=== PATIENT | female | born 1995 | race Caucasian/White ===

== ENCOUNTER 2017-10-12 12:19 | Emergency (ER) | payer BC ==
--- NOTE | 2017-10-12 12:35 | EDM.PDOC ---
ED HPI GENERAL MEDICAL PROBLEM - General Chief Complaint: Abdominal Pain Stated Complaint: R SIDE ABDOMINAL PAIN Time Seen by Provider: 10/12/17 12:34 Source of Information: Reports: Patient - History of Present Illness INITIAL COMMENTS - FREE TEXT/NARRATIVE: Patient is here today accompanied by her fipeggy for evaluation of right-sided abdominal pain. Patient states that the pain started approximately 3 weeks ago is more of a pressure. She states it's more of a pressure and then tends to spasm and be sharp after eating. It is to the upper and lower right side. She is taking no medication for this. She states that food worsens her symptoms. She denies any diarrhea or constipation. Her last bowel movement was about 2 days ago and this is normal for her. Patient reports an overall poor diet of processed foods and eating out. She denies any current or past drug use. Caffeine daily. Alcohol 1-2 times per month. LMP 09/14/2017. She is on no daily medications, has a past history of anxiety and a diagnosis of bipolar disorder. Last meal was upper last night she has had some water today. Right Upper Abdomen Pain Score (Numeric/FACES): 7 - Related Data Allergies Allergy/AdvReac Type Severity Reaction Status Date / Time No Known Allergies Allergy Verified 10/12/17 12:28 Home Meds: Home Meds . [No Known Home Meds] 10/12/17 [History] Sertraline [Zoloft] 50 mg PO DAILY 30 Days #30 tab 10/12/17 [Rx] Past Medical History - Past Health History Medical/Surgical History: Denies Medical/Surgical History Psychiatric History: Reports: Anxiety, Depression Social & Family History - Family History Family Medical History: Noncontributory - Tobacco Use Smoking Status *Q: Never Smoker - Recreational Drug Use Recreational Drug Use: No ED ROS GENERAL - Review of Systems Review Of Systems: See Below Constitutional: Reports: Fever, Chills, Malaise, Weakness, Fatigue, Decreased Appetite. Denies: Diaphoresis HEENT: Reports: No Symptoms Respiratory: Reports: No Symptoms Cardiovascular: Reports: No Symptoms GI/Abdominal: Reports: Abdominal Pain, Decreased Appetite, Nausea. Denies: Anorexia, Black Stool, Bloody Stool, Constipation, Diarrhea, Vomiting : Denies: Discharge, Dysuria, Frequency Musculoskeletal: Reports: No Symptoms Skin: Reports: No Symptoms Neurological: Reports: No Symptoms Psychiatric: Reports: No Symptoms ED EXAM, GI/ABD - Physical Exam Exam: See Below Exam Limited By: No Limitations General Appearance: Alert, WD/WN, No Apparent Distress Ears: Normal External Exam, Normal Canal, Normal TMs Nose: Normal Inspection, Normal Mucosa Throat/Mouth: Normal Inspection, Normal Oropharynx Head: Atraumatic, Normocephalic Neck: Normal Inspection, Supple, Non-Tender. No: Lymphadenopathy (L), Lymphadenopathy (R) Respiratory/Chest: No Respiratory Distress, Lungs Clear, Normal Breath Sounds Cardiovascular: Normal Peripheral Pulses, Regular Rate, Rhythm, No Murmur GI/Abdominal Exam: Normal Bowel Sounds, Soft, Tender (RUQ/RLQ positive Fraga sign, negative Ros[place]) Neurological: Alert, Oriented, Normal Cognition, No Motor/Sensory Deficits Psychiatric: Normal Affect, Normal Mood Skin Exam: Warm, Dry, Intact EKG INTERPRETATION EKG Date: 10/12/17 Time: 14:10 Rhythm: NSR Rate (Beats/Min): 53 Course - Vital Signs Last Recorded V/S: Last Vital Signs Temp 99.1 F 10/12/17 13:50 Pulse 72 10/12/17 12:23 Resp 12 10/12/17 13:50 BP 129/88 10/12/17 13:50 Pulse Ox 100 10/12/17 13:50 - Orders/Labs/Meds Orders: Active Orders 24 hr Category Date Time Status EKG 12 Lead [EKG Documentation Completion] [RC] STAT Care 10/12/17 13:53 Active Labs: Laboratory Tests 10/12/17 10/12/17 10/12/17 Range/Units 13:00 13:00 13:00 WBC 5.40 (3.98-10.04) K/mm3 RBC 4.11 (3.98-5.22) M/mm3 Hgb 12.5 (11.2-15.7) gm/L Hct 37.0 (34.1-44.9) % MCV 90.0 (79.4-94.8) fl MCH 30.4 (25.6-32.2) pg MCHC 33.8 (32.2-35.5) g/dl RDW Std Deviation 39.9 (36.4-46.3) fL Plt Count 229 (182-369) K/mm3 MPV 10.0 (9.4-12.3) fl Neutrophils % (Manual) 62 H (40-60) % Band Neutrophils % 0 (0-10) % Lymphocytes % (Manual) 28 (20-40) % Atypical Lymphs % 0 % Monocytes % (Manual) 9 (2-10) % Eosinophils % (Manual) 1 (0.7-5.8) % Basophils % (Manual) 0 L (0.1-1.2) Platelet Estimate Adequate Plt Morphology Comment Normal RBC Morph Comment Normal Sodium 141 (136-145) mEq/L Potassium 3.9 (3.5-5.1) mEq/L Chloride 106 (98-107) mEq/L Carbon Dioxide 24 (21-32) mEq/L Anion Gap 14.9 (5-15) BUN 8 (7-18) mg/dL Creatinine 0.7 (0.55-1.02) mg/dL Est Cr Clr Drug Dosing 122.89 mL/min Estimated GFR (MDRD) > 60 (>60) mL/min BUN/Creatinine Ratio 11.4 L (14-18) Glucose 93 (74-106) mg/dL Calcium 8.5 (8.5-10.1) mg/dL Total Bilirubin 0.3 (0.2-1.0) mg/dL AST 9 L (15-37) U/L ALT 13 L (14-59) U/L Alkaline Phosphatase 48 (46-116) U/L Troponin I < 0.017 (0.00-0.056) ng/mL C-Reactive Protein < 0.2 (<1.0) mg/dL Total Protein 6.6 (6.4-8.2) g/dl Albumin 3.4 (3.4-5.0) g/dl Globulin 3.2 gm/dL Albumin/Globulin Ratio 1.1 (1-2) Lipase 152 (73-393) U/L Meds: Medications Discontinued Medications Generic Name Dose Route Start Last Admin Trade Name Freq PRN Reason Stop Dose Admin Al Hydroxide/Mg Hydroxide 30 0 ml 10/12/17 12:45 10/12/17 13:07 ml/ Lidocaine HCl 15 ml PO 10/12/17 12:46 45 ml ONETIME ONE Administration Famotidine 20 mg 10/12/17 13:44 10/12/17 13:49 Pepcid PO 10/12/17 13:45 20 mg ONETIME ONE Administration Sodium Chloride 1,000 mls @ 999 mls/hr 10/12/17 12:46 10/12/17 13:07 Normal Saline IV 10/12/17 13:46 999 mls/hr ONETIME ONE Administration Lorazepam 1 mg 10/12/17 13:53 10/12/17 14:16 Ativan PO 10/12/17 13:54 1 mg ONETIME ONE Administration - Re-Assessments/Exams Free Text/Narrative Re-Assessment/Exam: Right-sided upper and lower abdominal pain with positive Fraga sign. Will start normal saline and get basic lab work and UA/Hcg. Will also have patient try GI cocktail to see if this helps with her pain 10/12/17 13:01 WBC was 5,400 with 62% neutrophils and no bands. CMP was normal including normal LFTs and normal lipase at 152. CRP 0.2. Troponin was negative. I suspect the patient's chest pain is related both to reflux and now anxiety since she has been here. She has been off her sertraline since moving to [place] approximately one month ago. Will resume her sertraline at a lower dose of 50 mg daily. She will follow-up in the clinic for this. Patient will start Zantac at bedtime 150 mg. She'll modify diet limiting spicy and fatty/processed foods. If abdominal pain is not resolved with this then will need to get an ultrasound of her gallbladder. Advised patient to follow up in the clinic or return to the emergency room if needed. Urinalysis was not obtained and patient declines to provide this at this time. 10/12/17 14:48 Departure - Departure Time of Disposition: 14:42 Disposition: Home, Self-Care 01 Condition: Good Clinical Impression: Epigastric pain, Anxiety - Discharge Information Prescriptions: Sertraline [Zoloft] 50 mg PO DAILY 30 Days #30 tab Referrals: Merrick Arango PA [Emergency Provider] - Forms: ED Department Discharge Additional Instructions: You were evaluated in the emergency room for chest pain and right-sided abdominal pain Workup of your heart and blood work for any infection was all normal. I would like you to take [id number] Zantac 150 mg at bedtime every night. Limits fatty and fried foods. If pain persists you are to call [phone] and we will get you scheduled for an ultrasound of your gallbladder. You will also resume your Zoloft/sertraline at 25 mg (which is one half a tablet ) for 6 days and then take 1 tablet (50mg) daily. Schedule follow-up with Merrick Arango PA-C at [phone] or return to the ER if needed. - My Orders Last 24 Hours: My Active Orders 10/12/17 13:53 EKG 12 Lead [EKG Documentation Completion] [RC] STAT - Assessment/Plan Last 24 Hours: My Active Orders 10/12/17 13:53 EKG 12 Lead [EKG Documentation Completion] [RC] STAT
[2017-10-12] MEDS ORDERED: Alum Hydrox/Mag Hydrox/Simeth 30 ML, Lidocaine 2% 15 ML PO ONE ×2 (12:45)
[2017-10-12] MEDS ORDERED: Sodium Chloride 0.9% 1,000 ML IV ONE (12:46)
[2017-10-12] MEDS ORDERED: Famotidine 20 MG Tab PO ONE (13:44)
[2017-10-12] MEDS ORDERED: LORazepam 1 MG Tab PO ONE (13:53)
== END 2017-10-12 15:10 | disposition home or self-care (01) ==
LOC: JD.ED 12:19
DX: R10.13 Epigastric pain (principal); F41.9 Anxiety disorder, unspecified; F31.9 Bipolar disorder, unspecified; Z79.899 Other long term (current) drug therapy
CPT/HCPCS: 36415; 80053; 83690; 84484; 85025; 86140; 93005; 96360; 99284; A9270; J7040

== ENCOUNTER 2017-10-30 16:48 | Emergency (ER) | payer BC ==
--- NOTE | 2017-10-30 17:43 | EDM.PDOC ---
ED HPI GENERAL MEDICAL PROBLEM - General Chief Complaint: Upper Extremity Injury/Pain Stated Complaint: L SHOULDER AND ARM PAIN Time Seen by Provider: 10/30/17 17:09 Source of Information: Reports: Patient, Significant Other (Fiance) History Limitations: Reports: No Limitations - History of Present Illness INITIAL COMMENTS - FREE TEXT/NARRATIVE: The patient states that she has had left shoulder pain for the past 3 years, but that it has been worse over the past week. She believes that she has some swelling to the posterior aspect of her left shoulder for the past week, and believes that her left collarbone has been sticking out for the past week. She denies any injury, either recently or previously. She states that the pain is constant, worse with movement of the shoulder. She states that she is taking both Tylenol and ibuprofen, without relief. The patient has not seen anyone about her shoulder, ever. It is unclear what precipitated an ER visit tonight. The patient's PCP is Cassie Arango. Left Shoulder Pain Score (Numeric/FACES): 7 - Related Data Allergies Allergy/AdvReac Type Severity Reaction Status Date / Time No Known Allergies Allergy Verified 10/30/17 16:56 Home Meds: Home Meds Sertraline [Zoloft] 50 mg PO DAILY 30 Days #30 tab 10/12/17 [Rx] Past Medical History Psychiatric History: Reports: Anxiety, Bipolar, Depression - Past Surgical History HEENT Surgical History: Reports: Naso-Sinus Surgery (Rhinoplasty March 2017) Social & Family History - Family History Family Medical History: Noncontributory - Tobacco Use Smoking Status *Q: Current Every Day Smoker Years of Tobacco use: 1 Packs/Tins Daily: 0.5 - Alcohol Use Alcohol Use History: Yes Alcohol Use Frequency: Socially - Recreational Drug Use Recreational Drug Use: No - Living Situation & Occupation Living situation: Reports: Single, with Significant Other (Fiance) Occupation: Unemployed Review of Systems - Review of Systems Review Of Systems: ROS reveals no pertinent complaints other than HPI. ED EXAM, GENERAL - Physical Exam Exam: See Below Exam Limited By: No Limitations General Appearance: Alert, WD/WN, No Apparent Distress Extremities: Other (No visible or tactile abnormality to the left shoulder, such as swelling, erythema, ecchymosis, or abrasion. No abnormality to the left clavicle. No A-C separation. The patient indicates tenderness to her superior, anterior, lateral, and posterior left shoulder. She reports pain with attempts at ROM against resistance with extension, flexion, abduction, adduction, internal rotation, and external rotation. Full PROM, although patient indicates pain. She is able to raise her left arm up over her head. Neurovascular status of the left upper extremity is intact.) Course - Vital Signs Last Recorded V/S: Last Vital Signs Temp 36.8 C 10/30/17 16:56 Pulse 100 10/30/17 16:56 Resp 15 10/30/17 16:56 BP 124/79 10/30/17 16:56 Pulse Ox 100 10/30/17 16:56 - Re-Assessments/Exams Free Text/Narrative Re-Assessment/Exam: 10/30/17 17:33 The patient reports tenderness to all aspects of her shoulder, and has pain to all attempts at ROM against resistance. I am not aware of any particular shoulder injury that would create all of these symptoms. As she has not had any traumatic injury, x-rays will not be of benefit. I'm recommending that she take [id number] ibuprofen, then follow-up with Dr. Stewart at the next available appointment. If she is unable to get into see Dr. Stewart within a reasonable period of time, she can follow-up with her PCP, Cassie Arango. Departure - Departure Time of Disposition: 17:34 Disposition: Home, Self-Care 01 Condition: Good Clinical Impression: Left shoulder pain - Discharge Information Instructions: Shoulder Pain Referrals: Cassie Arango PA [Primary Care Provider] - Reji Stewart MD [Physician] - Forms: ED Department Discharge Additional Instructions: You were seen in the emergency room for 3 years of left shoulder pain, worse over the past week. On examination, no acute abnormalities were found. Because there was no history of trauma, x-rays were not offered. We recommend that you take [id number] ibuprofen, 2-3 tablets (400-600 mg) every 8 hours, with food, as needed for discomfort. We recommend that you follow-up with the Orthopedic Surgeon Dr. Stewart at the next available appointment. If you cannot get in to see Dr. Stewart within a reasonable period of time, please follow-up with your PCP, Cassie Arango. If any other problems, please do not hesitate to return to the ER.
== END 2017-10-30 17:50 | disposition home or self-care (01) ==
LOC: JD.ED 16:48
DX: M25.512 Pain in left shoulder (principal); F17.210 Nicotine dependence, cigarettes, uncomplicated; Z79.899 Other long term (current) drug therapy
CPT/HCPCS: 99282; 99283

== ENCOUNTER 2017-12-29 19:14 | Emergency (ER) | payer BC ==
--- NOTE | 2017-12-29 21:45 | EDM.PDOC ---
ED HPI GENERAL MEDICAL PROBLEM - General Chief Complaint: Abdominal Pain Stated Complaint: RIGHT SIDE ABDOMINAL PAIN Time Seen by Provider: 12/29/17 19:38 Source of Information: Reports: Patient History Limitations: Reports: No Limitations - History of Present Illness INITIAL COMMENTS - FREE TEXT/NARRATIVE: 22 year old female presents for evaluation and treatment of left sided pelvic pain, vaginal sores and discharge. Patient reports symptoms started 2-3 days ago. She is complaining of pain to the left pelvic that is worse with movement. Describes the pain as a sharp pain that lasts a few seconds and goes into her vaginal. She is also complaining of sores to her vaginal, discharge and itching. Reports dysuria and nausea. No fevers, chills or vomiting. LMP was December 13. No history of pregnancies. Duration: Day(s): (3) Treatments LIGHTOUT EXAMINER: Reports: Other (see below) Other Treatments LIGHTOUT EXAMINER: none Left Lower Pelvic Pain Score (Numeric/FACES): 6 - Related Data Allergies Allergy/AdvReac Type Severity Reaction Status Date / Time No Known Allergies Allergy Verified 10/30/17 16:56 Home Meds: Home Meds Sertraline [Zoloft] 50 mg PO DAILY 30 Days #30 tab 10/12/17 [Rx] Fluconazole [Diflucan] 150 mg PO ASDIRECTED #2 tablet 12/29/17 [Rx] Past Medical History - Past Health History Medical/Surgical History: Denies Medical/Surgical History Psychiatric History: Reports: Anxiety, Bipolar, Depression - Past Surgical History HEENT Surgical History: Reports: Naso-Sinus Surgery Social & Family History - Family History Family Medical History: Noncontributory - Tobacco Use Smoking Status *Q: Current Every Day Smoker Years of Tobacco use: 1 Packs/Tins Daily: 0.5 - Caffeine Use Caffeine Use: Reports: Coffee, Soda - Recreational Drug Use Recreational Drug Use: No - Living Situation & Occupation Living situation: Reports: Single, with Significant Other (Fiance) Occupation: Unemployed ED ROS GENERAL - Review of Systems Review Of Systems: See Below Constitutional: Denies: Fever, Chills GI/Abdominal: Reports: Nausea. Denies: Abdominal Pain (le), Vomiting : Reports: Dysuria, Pain (left pelvic), Other (reports vaginal discharge, itching and sores) Skin: Reports: Pruritis (vaginal), Erythema (vaginal) ED EXAM, RENAL/ - Physical Exam Exam: See Below Exam Limited By: No Limitations General Appearance: Alert, WD/WN, No Apparent Distress Throat/Mouth: Normal Inspection, Normal Lips, Normal Voice, No Airway Compromise Respiratory/Chest: No Respiratory Distress, Lungs Clear, Normal Breath Sounds Cardiovascular: Normal Peripheral Pulses, Regular Rate, Rhythm, No Murmur GI/Abdominal: Normal Bowel Sounds, Soft, Non-Tender (Female) Exam: Normal Speculum Exam, Vaginal Discharge (thick white), Vaginal Lesions (erythematous, weeping area to the vulva with satellite lesions present). No: Cervical Lesions, Cervix Motion Tenderness Neurological: Alert, Oriented, Normal Cognition Psychiatric: Normal Affect, Normal Mood Skin Exam: Warm, Dry, Normal Color Course - Vital Signs Last Recorded V/S: Last Vital Signs Temp 99.1 F 12/29/17 19:27 Pulse 88 12/29/17 19:27 Resp 20 12/29/17 19:27 BP 106/70 12/29/17 19:27 Pulse Ox 100 12/29/17 19:27 - Orders/Labs/Meds Labs: Laboratory Tests 12/29/17 12/29/17 12/29/17 Range/Units 20:00 20:00 20:08 Urine Color Light yellow (Yellow) Urine Appearance Clear (Clear) Urine pH 6.5 (5.0-8.0) Ur Specific [place] 1.010 (1.005-1.030) Urine Protein Negative (Negative) Urine Glucose (UA) Negative (Negative) Urine Ketones Negative (Negative) Urine Occult Blood Negative (Negative) Urine Nitrite Negative (Negative) Urine Bilirubin Negative (Negative) Urine Urobilinogen 0.2 (0.2-1.0) Ur Leukocyte Esterase 1+ H (Negative) Urine RBC 0-5 (0-5) /hpf Urine WBC 5-10 H (0-5) /hpf Ur Epithelial Cells 40-50 H (0-5) /hpf Urine Bacteria Few (FEW) /hpf Urine Mucus Not seen (FEW) /hpf Urine HCG, Qual Negative (NEGATIVE) HIV-1 Ab Rapid Screen (NEGATIVE) C trachomatis DNA (PCR) Not detected N gonorrhoeae DNA (PCR) Not detected 12/29/17 Range/Units 20:30 Urine Color (Yellow) Urine Appearance (Clear) Urine pH (5.0-8.0) Ur Specific [place] (1.005-1.030) Urine Protein (Negative) Urine Glucose (UA) (Negative) Urine Ketones (Negative) Urine Occult Blood (Negative) Urine Nitrite (Negative) Urine Bilirubin (Negative) Urine Urobilinogen (0.2-1.0) Ur Leukocyte Esterase (Negative) Urine RBC (0-5) /hpf Urine WBC (0-5) /hpf Ur Epithelial Cells (0-5) /hpf Urine Bacteria (FEW) /hpf Urine Mucus (FEW) /hpf Urine HCG, Qual (NEGATIVE) HIV-1 Ab Rapid Screen Negative (NEGATIVE) C trachomatis DNA (PCR) N gonorrhoeae DNA (PCR) - Re-Assessments/Exams Free Text/Narrative Re-Assessment/Exam: 12/29/17 21:36 Patient requested full STD testing. Educated community action is an option for more affordable testing but would like to have testing done tonight. Made aware results would not (all) be available today. will call if STD testing is positive. Will treat for yeast infection. Vulva appears to have yeast like appearance. Discharge instructions as documented. Departure - Departure Time of Disposition: 21:39 Disposition: Home, Self-Care 01 Condition: Fair Clinical Impression: Vulvovaginal candidiasis - Discharge Information Prescriptions: Fluconazole [Diflucan] 150 mg PO ASDIRECTED #2 tablet Instructions: Vaginal Yeast Infection, Adult Referrals: PCP,None [Primary Care Provider] - Garry Hooper MD [Physician] - Forms: ED Department Discharge Additional Instructions: Take the Diflucan as prescribed. Take 1 tab tomorrow followed by the second 72 hours later. If you continue to have vaginal discomfort and symptoms began 1 week follow-up with OB. Recommend Dr. Hooper at the [facility]. Call [phone] to schedule with him. The remainder of your test results should be available within the next few days. You may call the ER at [phone] and ask to speak with a provider for the remainder of your test results. We will call you if you have any positive test results. If you do not hear from us assume your test results are negative. Please return to the ER if you symptoms change or worsen.
[2017-12-29 23:00] LABS: C. TRACHOMATIS BY PCR NOT DETECTED; N. GONORRHOEAE BY PCR NOT DETECTED
== END 2017-12-29 21:50 | disposition home or self-care (01) ==
LOC: JD.ED 19:14
DX: B37.3 Candidiasis of vulva and vagina (principal); F17.210 Nicotine dependence, cigarettes, uncomplicated; Z79.899 Other long term (current) drug therapy
CPT/HCPCS: 36415; 80074; 81001; 81025; 86592; 87210; 87491; 87591; 87808; 99284; G0433; 99283

== ENCOUNTER 2018-08-10 10:46 | Emergency (ER) | payer BC ==
[2018-08-10] MEDS ORDERED: Sodium Chloride 0.9% 10 ML Syringe FLUSH PRN (10:51)
[2018-08-10] MEDS ORDERED: Sodium Chloride 0.9% 1,000 ML IV SCH ×2 (11:00→12:30)
--- NOTE | 2018-08-10 11:16 | EDM.PDOCBH ---
ED HPI GENERAL MEDICAL PROBLEM - General Chief Complaint: Behavioral/Psych Stated Complaint: [facility] Time Seen by Provider: 08/10/18 10:50 Source of Information: Reports: Patient, EMS, RN Notes Reviewed - History of Present Illness INITIAL COMMENTS - FREE TEXT/NARRATIVE: 23-year-old female has been brought in by ambulance with history of Seroquel overdose. She states she took 11, 50 mg dosage. She does have history of anxiety , depression has been on Seroquel in the past but actually did stop taking that 2 or 3 months ago. She also is on Zoloft. She is somewhat vague when questioned about why she took the extra medication this morning, she does admit to feeling depressed but when asked if she were "trying to kill herself she replies no not really, not really sure. She states it's hard to explain but it seems like there was a voice "telling her to do it". She does deny alcohol or any other prescription or street drug ingestion. She denies taking Tylenol. She feels very sleepy. He can feel heart palpitations. Otherwise no chest pain or difficulty breathing. She's not been vomiting. Her mouth does feel extremely dry. Headache Pain Score (Numeric/FACES): 5 - Related Data Allergies Allergy/AdvReac Type Severity Reaction Status Date / Time No Known Allergies Allergy Verified 08/10/18 10:50 Home Meds: Home Meds Sertraline [Zoloft] 50 mg PO BEDTIME 05/20/18 [History] Past Medical History - Past Health History Medical/Surgical History: Denies Medical/Surgical History Neurological History: Reports: Migraines Psychiatric History: Reports: Anxiety, Bipolar, Depression - Past Surgical History HEENT Surgical History: Reports: Naso-Sinus Surgery, Oral Surgery Social & Family History - Family History Family Medical History: Noncontributory - Tobacco Use Smoking Status *Q: Current Every Day Smoker Years of Tobacco use: 1 Packs/Tins Daily: 0.5 - Caffeine Use Caffeine Use: Reports: Coffee, Energy Drinks, Soda, Tea - Recreational Drug Use Recreational Drug Use: No - Living Situation & Occupation Living situation: Reports: Single, with Significant Other (Fiance) Occupation: Unemployed ED ROS GENERAL - Review of Systems Review Of Systems: See Below Constitutional: Reports: Other. Denies: Fever, Chills, Diaphoresis HEENT: Reports: Other. Denies: Throat Pain (Mild feels very dry) Respiratory: Denies: Shortness of Breath Cardiovascular: Denies: Chest Pain GI/Abdominal: Denies: Abdominal Pain, Nausea, Vomiting Musculoskeletal: Denies: Shoulder Pain, Arm Pain, Back Pain Skin: Denies: Rash Neurological: Reports: Dizziness. Denies: Numbness, Tingling ED EXAM, BEHAVIORAL HEALTH - Physical Exam Exam: See Below General Appearance: Alert, No Apparent Distress Eye Exam: Bilateral Eye: PERRL Throat/Mouth: Other (Oral mucosa very dry) Head: No: Facial Swelling Neck: Supple, Full Range of Motion Respiratory/Chest: No Respiratory Distress, Lungs Clear, Normal Breath Sounds Cardiovascular: Tachycardia GI/Abdominal: Soft, Non-Tender. No: Guarding Back Exam: No: CVA Tenderness (L), CVA Tenderness (R) Extremities: Normal Inspection. No: Pedal Edema, Leg Pain Neurological: Alert, No Motor/Sensory Deficits Psychiatric: Alert, Normal Affect, Oriented. No: Pressured Speech Skin Exam: Warm, Dry, Normal color EKG INTERPRETATION EKG Date: 08/10/18 [place]: Normal P-Wave: Present QRS: Normal ST-T: Normal COURSE, BEHAVIORAL HEALTH COMP - Course Vital Signs: Last Vital Signs Temp 98.1 F 08/10/18 10:50 Pulse 103 H 08/10/18 10:50 Resp 12 08/10/18 10:50 BP 137/83 08/10/18 10:50 Pulse Ox 100 08/10/18 10:50 Orders, Labs, Meds: Active Orders 24 hr Category Date Time Status EKG 12 Lead [EKG Documentation Completion] [RC] STAT Care 08/10/18 10:50 Active Peripheral IV Care [RC] . DIRECTED Care 08/10/18 10:51 Active Peripheral IV Insertion Adult [OM.PC] Stat Oth 08/10/18 10:50 Ordered Laboratory Tests 08/10/18 08/10/18 08/10/18 Range/Units 11:10 11:10 12:09 WBC 2.55 L (3.98-10.04) K/mm3 RBC 4.35 (3.98-5.22) M/mm3 Hgb 13.2 (11.2-15.7) gm/L Hct 39.7 (34.1-44.9) % MCV 91.3 (79.4-94.8) fl MCH 30.3 (25.6-32.2) pg MCHC 33.2 (32.2-35.5) g/dl RDW Std Deviation 39.6 (36.4-46.3) fL Plt Count 196 (182-369) K/mm3 MPV 10.7 (9.4-12.3) fl Neut % (Auto) 52.1 (34.0-71.1) % Lymph % (Auto) 38.8 (19.3-51.7) % [place] % (Auto) 7.5 (4.7-12.5) % Eos % (Auto) 1.2 (0.7-5.8) Baso % (Auto) 0.4 (0.1-1.2) % Neut # (Auto) 1.33 L (1.56-6.13) K/mm3 Lymph # (Auto) 0.99 L (1.18-3.74) K/mm3 [place] # (Auto) 0.19 L (0.24-0.36) K/mm3 Eos # (Auto) 0.03 L (0.04-0.36) K/mm3 Baso # (Auto) 0.01 (0.01-0.08) K/mm3 Manual Slide Review Abnormal smear Sodium 138 (136-145) mEq/L Potassium 3.3 L (3.5-5.1) mEq/L Chloride 104 (98-107) mEq/L Carbon Dioxide 22 (21-32) mEq/L Anion Gap 15.3 H (5-15) BUN 8 (7-18) mg/dL Creatinine 0.6 (0.55-1.02) mg/dL Est Cr Clr Drug Dosing 142.17 mL/min Estimated GFR (MDRD) > 60 (>60) mL/min BUN/Creatinine Ratio 13.3 L (14-18) Glucose 120 H (74-106) mg/dL Calcium 8.1 L (8.5-10.1) mg/dL Total Bilirubin 0.5 (0.2-1.0) mg/dL AST 15 (15-37) U/L ALT 10 L (14-59) U/L Alkaline Phosphatase 45 L (46-116) U/L Total Protein 6.9 (6.4-8.2) g/dl Albumin 3.5 (3.4-5.0) g/dl Globulin 3.4 gm/dL Albumin/Globulin Ratio 1.0 (1-2) Urine Opiates Screen Negative (AGJCTW=075) Ur Buprenorphine Scrn Negative (CUTOFF=10) Ur Oxycodone Screen Negative (VMK2QP=498) Urine Methadone Screen Negative (WWASTL=286) Ur Propoxyphene Screen Negative (HEDGQL=163) Acetaminophen 0 L (10-30) ug/mL Ur Barbiturates Screen Negative (CAAVXG=474) Ur Tricyclics Screen Presumptive positive H (OWBQIM=134) Ur Phencyclidine Scrn Negative (CUTOFF=25) Ur Amphetamine Screen Negative (TERVLV=519) U Methamphetamines Scrn Negative (EGMGNB=252) U Benzodiazepines Scrn Negative (IFPAMZ=541) U Cocaine Metab Screen Negative (CTZNPV=705) U Marijuana (THC) Screen Negative (CUTOFF=50) Ethyl Alcohol 0.00 (0.00) gm% Medications Discontinued Medications Generic Name Dose Route Start Last Admin Trade Name Freq PRN Reason Stop Dose Admin Sodium Chloride 1,000 mls @ 999 mls/hr 08/10/18 11:00 08/10/18 11:07 Normal Saline IV 999 mls/hr ONETIME JOSSELYN Administration Sodium Chloride 1,000 mls @ 150 mls/hr 08/10/18 12:30 08/10/18 12:30 Normal Saline IV 150 mls/hr ASDIRECTED JOSSELYN Administration Sodium Chloride Confirm 08/10/18 12:28 Normal Saline Administered 08/10/18 12:29 Dose 1,000 mls @ as directed .ROUTE .STK-MED ONE Sodium Chloride 10 ml 08/10/18 10:51 08/10/18 11:07 Saline Flush FLUSH 10 ml ASDIRECTED PRN Administration Keep Vein Open Re-Assessment/Re-Exam: 13:30. We did check with poison control shortly after patient arrival. They advised to primarily watch for hypotension him a expected drowsiness and possible QT prolongation. They do not expect any of these effects to be super severe or dangerous with the amount ingested. She certainly does have the drowsiness, EKG is normal, blood pressure running 110-120 systolic. I have questioned her more about intent and although she is somewhat vague about this she states that she has had thoughts of "drug overdose for years wondering what it would be like". She states that she had no intention of killing herself this morning, does not want to . Her boyfriend is now here at this time. We have discussed options of transfer for inpatient psych versus going home, following up at [facility] they both feel it is safe for her to go home from a mental health standpoint. That is their preference. 16:45. Have now observed her for about 6 hours. She's had most of 2 L of IV normal saline. She is sleeping resting comfortably when I went to the room just a few minutes ago. However very readily arousable and now awake, alert, ready to go home. In her boyfriend are very comfortable with that. She does not want to be admitted into the hospital, she does not want to be referred to inpatient psych. She states she has no thought or intention of "killing herself or wanting to . Her boyfriend states he will help keep her safe. She is willing to follow-up with [facility] early next week. Departure - Departure Time of Disposition: 16:51 Disposition: Home, Self-Care 01 Condition: Fair Clinical Impression: Medication overdose Qualifiers: Encounter type: initial encounter Injury intent: undetermined intent Qualified Code(s): T50.904A - Poisoning by unspecified drugs, medicaments and biological substances, undetermined, initial encounter - Discharge Information Instructions: Drug Overdose Referrals: Chelsea Hampton PA-C [Primary Care Provider] - Forms: ED Department Discharge Additional Instructions: Plan to not take your Zoloft this evening but you may resume that tomorrow evening as prescribed. Drink plenty of water to maintain hydration. Follow-up with [facility] early next week, call Sunday for appointment. Return to ED as needed if symptoms worsening in any way. - My Orders Last 24 Hours: My Active Orders 08/10/18 10:50 EKG 12 Lead [EKG Documentation Completion] [RC] STAT Peripheral IV Insertion Adult [OM.PC] Stat 08/10/18 10:51 Peripheral IV Care [RC] . DIRECTED - Assessment/Plan Last 24 Hours: My Active Orders 08/10/18 10:50 EKG 12 Lead [EKG Documentation Completion] [RC] STAT Peripheral IV Insertion Adult [OM.PC] Stat 08/10/18 10:51 Peripheral IV Care [RC] . DIRECTED
[2018-08-10 11:47] LABS: ACETAMINOPHEN 0 ug/mL (10-30)
[2018-08-10] MEDS ORDERED: Sodium Chloride 0.9% 1,000 ML ONE (12:28)
== END 2018-08-10 16:59 | disposition home or self-care (01) ==
LOC: JD.ED 10:46
DX: T43.591A Poisoning by other antipsychotics and neuroleptics, accidental (unintentional), initial encounter (principal); F41.9 Anxiety disorder, unspecified; F32.9 Major depressive disorder, single episode, unspecified; F17.210 Nicotine dependence, cigarettes, uncomplicated
CPT/HCPCS: 36415; 80053; 80306; 85025; 93005; 96360; 96361; 99285; G0480; J7040; 93010; 99284